=== PATIENT | female | born 1970 | race Caucasian/White ===

== ENCOUNTER 2019-07-04 18:28 | Inpatient (IN) | payer OTHER ==
[~2019-07-04] VITALS: Ht 193 cm; Wt 78.0 kg
--- OUTSIDE RECORDS SUMMARY | 2019-07-04 18:31 | XMS REPORT ---
Author Author [facility] Address Unknown Phone Unavailable Care Team Providers Care [employer]obile Drivers Name Role Phone Unavailable Unavailable Payers Payer Name Policy Type Policy Number Effective Date Expiration Date Problems This patient has no known problems. Allergies, Adverse Reactions, Alerts This patient has no known allergies or adverse reactions. Medications This patient has no known medications.
--- NOTE | 2019-07-04 20:26 | Diagnostic Imaging Report ---
EXAM: ABDOMEN-1VIEW (KUB), DATE: 07/04/2019 6:36 PM INDICATION: Pain. No bowel movement. COMPARISON: None FINDINGS: LINES/TUBES: None BOWEL PATTERN: Gas within colonic loops and nondilated small bowel loops. Small volume of stool within the colon. No significant gas within the rectosigmoid. SOFT TISSUES: No abnormal calcifications. No mass effect. LUNG BASES: Clear. BONES: No acute findings. Probable status post L4-L5 laminectomy. IMPRESSION: Nonobstructive bowel gas pattern. Signed by: Dr. Ramonita Ricketts M.D. on 07/04/2019 8:23 PM
[2019-07-04] MEDS ORDERED: KETOROLAC TROMETHAMINE 30 MG/ML VIAL IV ONE (21:39)
[2019-07-04] MEDS ORDERED: ONDANSETRON HCL INJ 2MG/ML 2ML 2 MG/ML VIAL IV ONE (21:39)
[2019-07-04] MEDS ORDERED: MORPHINE SULFATE INJ 4 MG/ML INJ 1ML IV ONE (21:45)
[2019-07-04] MEDS ORDERED: MORPHINE SULFATE 5 MG/ML VIAL IV ONE (21:45)
[2019-07-04] MEDS ORDERED: SODIUM CHLORIDE 0.9% 1000ML 1,000 ML IV SCH (21:45)
[2019-07-04 22:10] LABS: BASOPHILS % 0.2 % (0.0-1.0); EOSINOPHILS # (AUTO) 0.2 (0.0-0.4); EOSINOPHILS % 1.1 % (0.0-6.0); HEMATOCRIT 40.9 % (34.2-44.1); HEMOGLOBIN 13.2 g/dL (12.0-16.0); LYMPHOCYTES # (AUTO) 2.2 (1.0-3.2); LYMPHOCYTES % 16.5 % (18.0-39.1); MEAN CORPUSCULAR HEMOGLOBIN 28.9 pg (28-32); MEAN CORPUSCULAR HGB CONC 32.3 g/dL (31-35); MEAN CORPUSCULAR VOLUME 89.5 fL (81-99); MONOCYTES # (AUTO) 0.9 (0.2-0.8); MONOCYTES % 6.6 % (4.4-11.3); NEUTROPHILS % 75.1 % (38.7-80.0); PLATELET COUNT 413 x10e3/uL (140-360); RED BLOOD COUNT 4.57 x10e6/uL (3.6-5.1); RED CELL DISTRIBUTION WIDTH 13.7 % (11.7-14.4)
[2019-07-04 22:30] LABS: ALANINE AMINOTRANSFERASE 11 IU/L (0-55); ALBUMIN/GLOBULIN RATIO 0.8 (0.8-2.0); ALKALINE PHOSPHATASE 110 IU/L (40-150); BLOOD UREA NITROGEN 7 mg/dL (7-26); BUN/CREATININE RATIO 7 (6-25); CALCIUM 8.9 mg/dL (8.4-10.2); CARBON DIOXIDE 29 mmol/L (22-29); CHLORIDE 97 mmol/L (98-107); CREATININE, SERUM 0.97 mg/dL (0.57-1.11); EST GLOMERULAR FILTRATION RATE > 60 ML/MIN (60-); GLUCOSE 106 mg/dL (74-118); SODIUM 138 mmol/L (136-145)
[2019-07-04] MEDS ORDERED: DIATRIZOATE MEGL/DIATRIZOA SOD 30 ML BTL PO ONE (22:37)
[2019-07-05] MEDS ORDERED: IOPAMIDOL 370 MG/ML 200 ML INFUS..BTL INJ ONE (00:20)
[2019-07-05] MEDS ORDERED: SODIUM CHLORIDE 0.9% 50ML 50 ML ONE (00:20)
--- NOTE | 2019-07-05 01:15 | Diagnostic Imaging Report ---
EXAM: CT Abdomen and Pelvis WITH contrast INDICATION: Abscesses on inner thigh/buttock, constipation COMPARISON: None. TECHNIQUE: Abdomen and pelvis were scanned utilizing a multidetector helical scanner from the lung base to the pubic symphysis after administration of IV contrast. Coronal and sagittal reformations were obtained. Routine protocol was performed. Scan was performed when during portal venous phase. IV CONTRAST: 100 mL of Isovue 370 ORAL CONTRAST: Gastroview COMPLICATIONS: None RADIATION DOSE: Total DLP: 610 mGy*cm Estimated effective dose: (DLP x 0.015 x size factor) mSv CTDIvol has been reviewed. It is below the limits set by the Radiation Protocol Committee (RPC). Dose modulation, iterative reconstruction, and/or weight based adjustment of the mA/kV was utilized to reduce the radiation dose to as low as reasonably achievable. FINDINGS: LINES and TUBES: None. LOWER THORAX: There is bibasilar atelectasis. HEPATOBILIARY: No focal hepatic lesions. No biliary ductal dilation. GALLBLADDER: No radio-opaque stones or sludge. No wall thickening. SPLEEN: No splenomegaly. PANCREAS: No focal masses or ductal dilatation. ADRENALS: No adrenal nodules KIDNEYS/URETERS: Kidneys enhance symmetrically. No hydronephrosis. No cystic or solid mass lesions. No stones. GI TRACT: Small hiatal hernia. Moderate thickening, some subtle edema, and heterogeneity of the rectum with surrounding fat stranding. A thin 3.6 x 1 cm peripherally enhancing fluid density tracks along the right lower rectal wall. No abnormal distention or evidence of bowel obstruction. Appendix is normal. PELVIC ORGANS/BLADDER: Unremarkable. LYMPH NODES: Slightly prominent bilateral pelvic lymph nodes. Slight prominence of lower retroperitoneal lymph nodes. Largest lymph node is a 1 cm right lower periaortic lymph node. Slightly enlarged bilateral inguinal lymph nodes measure up to 1 cm. VESSELS: There is mild atherosclerotic disease in the aorta and major arterial branches. PERITONEUM / RETROPERITONEUM: No free air or fluid. BONES: There are degenerative changes in the lumbar spine. SOFT TISSUES: Unremarkable. IMPRESSION: 1. Marked proctitis, with probable thin perirectal abscess along the distal right rectum. Recommend surgical consultation. 2. Slightly prominent bilateral pelvic and lower retroperitoneal lymph nodes, largest is a 1 cm right lower periaortic lymph node. These are likely reactive, although recommend correlation with proctoscopy. Signed by: Pedro Isabel DO on 07/05/2019 1:12 AM
[2019-07-05] MEDS ORDERED: ONDANSETRON HCL INJ 2MG/ML 2ML 2 MG/ML VIAL IV PRN (03:00)
[2019-07-05] MEDS ORDERED: MORPHINE SULFATE 2 MG/ML SYR 1ML IV PRN ×2 (03:00→14:00)
[2019-07-05] MEDS ORDERED: CLINDAMYCIN PHOS 900MG/ 50ML 50 ML IV STA (03:12)
[2019-07-05] MEDS ORDERED: ROSUVASTATIN CA40 MG PO (03:29)
[2019-07-05] MEDS ORDERED: LISINOPRIL10 MG PO (03:29)
[2019-07-05] MEDS ORDERED: ISOSORBIDE MONO10 MG PO (03:29)
[2019-07-05] MEDS ORDERED: FAMOTIDINE20 MG PO (03:29)
[2019-07-05] MEDS ORDERED: HYDROCHLOROTHIA25 MG PO (03:29)
[2019-07-05] MEDS ORDERED: LEVOTHYROXINE200 MCG PO (03:29)
[2019-07-05] MEDS ORDERED: METOPROLOL SUCC25 MG PO (03:29)
[2019-07-05] MEDS ORDERED: ASPIR-LOW81 MG PO (03:29)
[2019-07-05] MEDS ORDERED: CALCITRIOL0.25 MCG PO (03:29)
[2019-07-05] MEDS ORDERED: METHOCARBAMOL750 MG PO (03:29)
[2019-07-05] MEDS ORDERED: GABAPENTIN100 MG PO (03:29)
[2019-07-05] MEDS ORDERED: PLAVIX75 MG PO (03:29)
[2019-07-05] MEDS ORDERED: VITAMIN D250000 UNIT PO (03:29)
[2019-07-05] MEDS ORDERED: VITAMIN B122500 MCG PO (03:29)
[2019-07-05] MEDS ORDERED: SYNTHROID100 MCG PO ×2 (03:33)
--- NOTE | 2019-07-05 07:00 | NUR ---
BEDSIDE REPORT WITH ACEVEDOS L.V.N PATIENT AWARE SHE IS NOT TO EAT OR DRINK ANYTHING UNTILL CLEARED BY THE DOCTOR
--- NOTE | 2019-07-05 09:59 | NUR ---
ATTEMPTED TO CALL DR. CARRERA. SPOKE WITH HIS P.A. SHE WILL FIND OUT WHO IS ROUNDING AND CALL BACK. PATIENT IS NPO, NEEDS MAINTENACE FLUIDS, CONTINUED ANTIBIOTICS AND IS REQUESTING FLUIDS TO DRINK
[2019-07-05] MEDS ORDERED: DEXTROSE 5%/0.45% SOD CHL 1,000 ML IV SCH (10:15)
--- NOTE | 2019-07-05 10:22 | NUR ---
SPOKE WITH DR. VELIZ. HE WILL BE HERE WITHIN IN THE HOUR TO SEE THE PATIENT
--- NOTE | 2019-07-05 11:24 | Consultation ---
DATE OF CONSULTATION: 07/05/2019 HISTORY OF PRESENT ILLNESS: The patient is a 49-year-old female, presenting to the emergency room with complaints of pain and swelling in her perianal area. She had also had some drainage. She says the drainage has increased considerably. Her pain is gone now. She has had problem off and on, it was there for many years. She says for 10 years. About once a year, she has episodes of pain and swelling with drainage, which is usually draining spontaneously. Surgery previously was recommended for an anal fistula, but she never had this done. The patient had imaging studies, which revealed abscess in the perianal area. PAST MEDICAL HISTORY: Significant for coronary artery disease, previous coronary stents and she is on Plavix and aspirin for this. She also has a history of hypothyroidism, hypertension, hypercholesterolemia. MEDICATIONS: Listed in the chart. ALLERGIES: SHE HAS ALLERGIES TO KEFLEX AND CODEINE. FAMILY HISTORY: Noncontributory. SOCIAL HISTORY: The patient smokes cigarettes about a 3rd pack per day. She does not drink alcohol. REVIEW OF SYSTEMS: She has not had any fever or weight loss. PHYSICAL EXAMINATION: GENERAL: The patient is awake and alert, in no distress. VITAL SIGNS: Normal. HEENT: Sclerae is not icteric. NECK: Supple. No masses. LUNGS: Equal breath sounds are clear bilaterally. CARDIAC: Regular rate and rhythm with no murmur. ABDOMEN: Soft. There is no tenderness. No mass. RECTAL: The perianal area has a sinus tract opening with small amount of purulent drainage. There is mild tenderness. No significant swelling. No erythema in the area at this time. There is no rectal mass. EXTREMITIES: No edema. NEUROLOGIC: Intact. LABORATORY DATA: White blood count was 13.3 on admission, hemoglobin 13, and hematocrit 41. Chemistries essentially normal. IMAGING STUDIES: Revealed a perirectal abscess. ASSESSMENT: A 49-year-old female with perirectal abscess, probably anal fistula, which is draining spontaneously. With her feeling better and the abscess having draining spontaneously, no intervention is needed at this time. Recommend continue the patient on IV antibiotics and it is discussed with the patient. She may benefit from anal fistulotomy and she is considering this. The patient may start on a diet, recommend continue the antibiotics. Thank you for asking me to see Ms. Felix. Jb W MD AJITH Hill/TIGRE /[id number]
[2019-07-05 11:42] VITALS: BP 125/70
[2019-07-05 11:45] VITALS: BP 125/70
--- NOTE | 2019-07-05 11:45 | NUR ---
RECEIVED PATIENT FROM ER TO ROOM 295. SHE IS IN STABLE CONDITION. ORIENTED TO ROOM AND POLICIES. ADMISSION HISTORY AND INITIAL PHYSICAL ASSESSMENT COMPLETED AND DOCUMENTED. CALL LIGHT WITHIN REACH. BED IN THE LOWEST POSITION.
[2019-07-05] MEDS: LEVOFLOXACIN 500MG/D5W 100ML 100 ML IV SCH (12:29)
[2019-07-05] MEDS ORDERED: HYDRALAZINE HCL 20 MG/ML VIAL IV PRN (13:30)
[2019-07-05] MEDS ORDERED: ERGOCALCIFEROL 50,000 UNIT CAP PO SCH (13:30)
[2019-07-05] MEDS ORDERED: MELATONIN 5 MG TABLET PO PRN (13:30)
[2019-07-05] MEDS ORDERED: ACETAMINOPHEN 325 MG TAB PO PRN (13:30)
[2019-07-05 14:59] VITALS: BP 116/76
[2019-07-05] MEDS: HYDROCODONE/APAP 5MG-325MG TAB PO PRN ×2 (15:56→21:58)
[2019-07-05] MEDS: FAMOTIDINE 20 MG TAB PO SCH (16:01)
[2019-07-05] MEDS: CALCITRIOL 0.25 MCG CAP PO SCH (16:01)
--- NOTE | 2019-07-05 19:08 | NUR ---
Report given to oncoming nurse. Walking rounds done. Patient is resting in bed. No acute distress noted. No s.s of pain noted. Daughter at bedside. Call light within reach. Bed in the lowest position.
[2019-07-05 19:12] VITALS: BP 111/66
--- NOTE | 2019-07-05 19:12 | NUR ---
PT IS RESTING IN BED WITH DAUGHTER AT BEDSIDE. RESPIRATION IS EVEN AND UNLABORED, NO DISTRESS NOTED. BED IN THE LOWEST POSITION, LOCKED, AND CALL LIGHT WITHIN REACH. WILL CONTINUE TO MONITOR.
[2019-07-05 20:00] VITALS: BP 111/66
[2019-07-05] MEDS: CRESTOR 10MG PO SCH (20:08)
[2019-07-05] MEDS: LEVOTHYROXINE SODIUM 100 MCG TAB PO SCH (20:08)
[2019-07-06] VITALS (9 sets, daily range): BP systolic 117–170; BP diastolic 63–92
--- NOTE | 2019-07-06 06:34 | NUR ---
Received report from off-going nurse. Walking rounds done. Patient is resting in bed. No acute distress noted. Call light within reach. Bed in the lowest position.
[2019-07-06] MEDS ORDERED: POLYETHYLENE GLYCOL 3350 17 GM PACK PO PRN (06:45)
[2019-07-06 07:32] LABS: BASOPHILS % 0.3 % (0.0-1.0); EOSINOPHILS # (AUTO) 0.2 (0.0-0.4); EOSINOPHILS % 2.9 % (0.0-6.0); HEMATOCRIT 37.1 % (34.2-44.1); HEMOGLOBIN 11.7 g/dL (12.0-16.0); LYMPHOCYTES # (AUTO) 1.9 (1.0-3.2); LYMPHOCYTES % 24.5 % (18.0-39.1); MEAN CORPUSCULAR HEMOGLOBIN 28.7 pg (28-32); MEAN CORPUSCULAR HGB CONC 31.5 g/dL (31-35); MEAN CORPUSCULAR VOLUME 91.2 fL (81-99); MONOCYTES # (AUTO) 0.6 (0.2-0.8); MONOCYTES % 7.4 % (4.4-11.3); NEUTROPHILS # (AUTO) 4.9 (2.1-6.9); NEUTROPHILS % 64.2 % (38.7-80.0); PLATELET COUNT 348 x10e3/uL (140-360); RED BLOOD COUNT 4.07 x10e6/uL (3.6-5.1); RED CELL DISTRIBUTION WIDTH 13.8 % (11.7-14.4)
[2019-07-06 07:47] LABS: BLOOD UREA NITROGEN < 5 mg/dL (7-26); CARBON DIOXIDE 29 mmol/L (22-29); CHLORIDE 100 mmol/L (98-107); CREATININE, SERUM 0.72 mg/dL (0.57-1.11); EST GLOMERULAR FILTRATION RATE > 60 ML/MIN (60-); GLUCOSE 80 mg/dL (74-118); SODIUM 138 mmol/L (136-145)
[2019-07-06 07:57] LABS: BUN/CREATININE RATIO 7 (6-25)
[2019-07-06] MEDS: DOCUSATE SODIUM 100 MG CAP PO SCH ×2 (08:14→16:00)
[2019-07-06] MEDS: FAMOTIDINE 20 MG TAB PO SCH ×2 (08:14→16:00)
[2019-07-06] MEDS: CALCITRIOL 0.25 MCG CAP PO SCH ×2 (08:14→16:00)
[2019-07-06] MEDS ORDERED: ASPIRIN 81 MG CHEW TAB PO SCH (09:00)
[2019-07-06] MEDS ORDERED: CLOPIDOGREL BISULFATE 75 MG TAB PO SCH (09:00)
[2019-07-06] MEDS ORDERED: METOPROLOL SUCCINATE 25 MG TAB XL PO SCH (09:00)
[2019-07-06] MEDS: LEVOFLOXACIN 500MG/D5W 100ML 100 ML IV SCH (10:04)
--- NOTE | 2019-07-06 13:29 | Consultation ---
DATE OF CONSULTATION: REASON FOR CONSULTATION: Perirectal abscess. HISTORY OF PRESENT ILLNESS: This patient, who is very pleasant 49-year-old white female. She is telling me she has been having for the last 10 years of drainage coming from 2 areas in between the thighs. She was on dialysis. The patient was also a . The patient had some pain in the last few days with redness and swelling to the anal area with drainage more than usual, [facility] told her she needs to go to her primary care physician, so she came here. The patient apparently had history of anal fistula. The patient, however, was not happy with [facility], so she came here. The patient is currently lying in bed comfortably. She does have history of hypothyroidism, status post thyroidectomy for thyroid cancer, history of obesity, history of coronary artery disease, and history of hypertension. PAST SURGICAL HISTORY: Thyroidectomy. ALLERGIES: NKA. SOCIAL HISTORY: There is no smoking, drug abuse, or alcohol abuse. FAMILY HISTORY: Otherwise noncontributory. REVIEW OF SYSTEMS: She is complaining of pain in the rectal area, but she says she is a lot better now since she came here. She states drainage has subsided. PHYSICAL EXAMINATION: GENERAL: She is currently alert and oriented. Does not seem to be in acute distress. VITAL SIGNS: Stable, currently afebrile. HEENT: She is not icteric. NECK: Supple. CHEST: Clear. HEART: S1 and S2. ABDOMEN: Soft and obese. No tenderness. No hepatosplenomegaly. EXTREMITIES: No edema. There is no drainage at present time. LABORATORY DATA: Reviewed. Her CAT scan showed marked proctitis with perirectal abscess possibly. Her white count when she first came was 13.2, came down to 7.6. Her sodium 138, potassium 4.0, and creatinine 0.72. MEDICATION LIST: She is on Levaquin, Colace, Pepcid, Plavix, aspirin, levothyroxine, and melatonin. IMPRESSION: Perirectal abscess and draining, colitis. Discussed with the patient. She does not want us to do anything here. She would rather be discharged and follow up with the [facility]. From Infectious Disease point of view, can switch to oral Cipro and Flagyl. Cipro 500 mg p.o. b.i.d. and Flagyl 500 mg p.o. t.i.d. We will treat for 3 weeks. [facility]. I would also recommend to do a colonoscopy and full GI workup and surgical consultation, but she would like all this [facility]. Discussed with the patient at length. We will follow with you. MD REMI Mcclendon/MODHarjit /[id number]
[2019-07-06] MEDS: METRONIDAZOLE 500 MG TAB PO SCH ×2 (13:57→21:50)
--- NOTE | 2019-07-06 19:04 | NUR ---
Report given to oncoming nurse. Walking rounds done. Patient is resting in bed. No acute distress noted. Call light within reach. Bed in the lowest position.
[2019-07-06] MEDS: CRESTOR 10MG PO SCH (20:44)
[2019-07-06] MEDS: LEVOTHYROXINE SODIUM 100 MCG TAB PO SCH (20:44)
[2019-07-07 00:16] VITALS: BP 139/78
[2019-07-07] MEDS: METRONIDAZOLE 500 MG TAB PO SCH (05:58)
[2019-07-07 06:01] VITALS: BP 130/71
[2019-07-07 06:12] LABS: BASOPHILS % 0.1 % (0.0-1.0); EOSINOPHILS # (AUTO) 0.2 (0.0-0.4); EOSINOPHILS % 3.5 % (0.0-6.0); HEMATOCRIT 37.3 % (34.2-44.1); LYMPHOCYTES % 28.6 % (18.0-39.1); MEAN CORPUSCULAR HEMOGLOBIN 28.8 pg (28-32); MEAN CORPUSCULAR HGB CONC 32.2 g/dL (31-35); MEAN CORPUSCULAR VOLUME 89.4 fL (81-99); MONOCYTES # (AUTO) 0.4 (0.2-0.8); MONOCYTES % 5.9 % (4.4-11.3); NEUTROPHILS # (AUTO) 4.2 (2.1-6.9); NEUTROPHILS % 61.5 % (38.7-80.0); PLATELET COUNT 341 x10e3/uL (140-360); RED BLOOD COUNT 4.17 x10e6/uL (3.6-5.1); RED CELL DISTRIBUTION WIDTH 13.8 % (11.7-14.4)
[2019-07-07 06:31] LABS: ANION GAP 15.3 mmol/L (8-16); BLOOD UREA NITROGEN 6 mg/dL (7-26); BUN/CREATININE RATIO 8 (6-25); CALCIUM 8.4 mg/dL (8.4-10.2); CARBON DIOXIDE 30 mmol/L (22-29); CHLORIDE 100 mmol/L (98-107); CREATININE, SERUM 0.78 mg/dL (0.57-1.11); EST GLOMERULAR FILTRATION RATE > 60 ML/MIN (60-); GLUCOSE 86 mg/dL (74-118); POTASSIUM 4.3 mmol/L (3.5-5.1); SODIUM 141 mmol/L (136-145)
[2019-07-07] MEDS ORDERED: ULTRAM 50MG50 MG PO (06:43)
[2019-07-07] MEDS ORDERED: FLAGYL500 MG PO (06:43)
[2019-07-07] MEDS ORDERED: CIPRO500 MG PO (06:43)
[2019-07-07] MEDS ORDERED: ONDANSETRON HCL 4 MG ORAL DISINTEGRATING TAB PO PRN (07:45)
[2019-07-07 08:00] VITALS: BP 143/76
[2019-07-07 08:05] VITALS: BP 143/76
--- NOTE | 2019-07-07 09:17 | NUR ---
Pt discharged home at this time. Pt is able to verbalize needs. Verbalized understanding of all discharge instructions and follow up appt. 0 s/s of acute distress noted at time of discharge.
[2019-07-07] MEDS ORDERED: ATORVASTATIN 40 MG TAB PO SCH (21:00)
[2019-07-07] MEDS ORDERED: LEVOTHYROXINE SODIUM 100 MCG TAB PO SCH (21:00)
--- NOTE | 2019-07-08 08:10 | Discharge Summary ---
ADMISSION DIAGNOSES: Perirectal abscess, hypertension, hyperlipidemia, history of coronary artery disease, hypothyroidism, and gastroesophageal reflux disease. DISCHARGE DIAGNOSES: Perirectal abscess, hypertension, hyperlipidemia, history of coronary artery disease, hypothyroidism, and gastroesophageal reflux disease. HISTORY: GERD, [place], thyroid cancer, hypertension, hyperlipidemia, CAD with stents. SURGICAL HISTORY: Thyroid surgery x2, x2, tubal ligation. SOCIAL HISTORY: Occasional alcohol use and one pack of cigarettes a day. HOSPITAL COURSE: A 49-year-old female admits with tender, swollen perianal area with drainage that began on Sunday. She denies fever. She says that this happens intermittently for the last 10 years. She came to the ER due to worsening pain and the drainage becoming pus. On admission, WBC was 13.3. CT of the abdomen and pelvis showed marked proctitis with probable thin perirectal abscess along the distal right rectum. Surgery was consulted, but Surgery did not think surgery was appropriate. ID was consulted. Wound culture was collected. The patient was started on Levaquin and clindamycin. ID saw the patient and recommended a GI workup. The patient refused and said that if she had surgery or GI work up, she had to go to the [facility] where her insurance would pay for it. So, the patient will discharge home with 3 weeks of Cipro and Flagyl per ID recommendation. She will follow up as soon as possible with GI and Surgery. The patient understands discharge instructions and agrees to plan. Vital signs stable, the patient afebrile. Dictated by Lizeth Hernandez, IMANI MD ROSEMARY Marte/TIGRE /[id number]
== END 2019-07-07 09:17 | disposition home or self-care (01) | DRG 395 ==
LOC: ER 18:28 → ERHOLD 07-05 02:55 → MED/SURG3 07-05 11:15
PROVIDERS: ADMIT Internal Medicine; ATTEND Internal Medicine
DX: K61.1 Rectal abscess (principal); I10 Essential (primary) hypertension; E78.5 Hyperlipidemia, unspecified; E03.9 Hypothyroidism, unspecified; I25.10 Atherosclerotic heart disease of native coronary artery without angina pectoris; K21.9 Gastro-esophageal reflux disease without esophagitis; I25.2 Old myocardial infarction; Z95.5 Presence of coronary angioplasty implant and graft; K62.89 Other specified diseases of anus and rectum; Z85.850 Personal history of malignant neoplasm of thyroid; F17.210 Nicotine dependence, cigarettes, uncomplicated
CPT/HCPCS: 36415; 74018; 74177; 80048; 80053; 84443; 85025; 87071; 87186; 87205; 99284; J1885; J1956; J2270; J2405; J7030; Q9967